=== PATIENT | male | born 1955 | race Caucasian/White ===

== ENCOUNTER 2024-12-17 02:25 | Day surgery (SDC) | payer MEDICARE, OTHER, SELFPAY ==
[2024-11-12 12:45] VITALS: BMI 36.6
--- NOTE | 2024-12-02 10:36 | SUR.PREOP ---
Pt called this am to cancel his procedure on 12/03 due to provider availability. Pt rescheduled to 12/17 [id number].
--- NOTE | 2024-12-05 13:23 | PC.NURSE ---
Recent interview completed on 11/12/2024. Pt updated with new time/dates and states no change in medications or medical history.
[2024-12-17 08:45] VITALS: BP 152/109; PULSE 62; RESP 18; TEMP 36.3; O2SAT 98
[2024-12-17] MEDS: LACTATED RINGERS 1,000 ML 150 ML IV CONT (08:55)
--- NOTE | 2024-12-17 09:22 | PM.HPGS ---
History of Present Illness History of Present Illness Consent: Risks, benefits, and alternatives have been discussed and questions answered. Patient agrees to proceed with procedure. Chief complaint: Positive Cologuard Narrative: Jose Pastrana is a 69 year old male here for first colonoscopy, + cologuard Review of Systems Review of Systems: All systems reviewed & are unremarkable except as noted in HPI and below PMFSH Past Medical History Medical History (Updated 12/17/24 @ 09:27 by Yazan Monge MD) Positive colorectal cancer screening using Cologuard test Social History Social History Smoking status: Never smoker Alcohol intake: current Drinks per week: 2 Substance use type: does not use Living arrangements: with family Spiritual care concerns: No Meds Home Medications and Allergies Home Medications ?Medication ?Instructions ?Recorded ?Confirmed ?Type No Home Medications 11/12/24 11/12/24 History Allergies Allergy/AdvReac Type Severity Reaction Status Date / Time No Known Allergies Allergy Unknown Verified 12/17/24 08:43 Vital Signs Vital Signs - 24 hr 12/17/24 08:45 Temperature 97.4 F L Pulse Rate 62 Respiratory Rate 18 Blood Pressure 152/109 H Pulse Oximetry 98 Oxygen Delivery Room Air Exam Const: General: comfortable and no acute distress HENMT: Face/Nose/Sinus: Normal nares present Eyes: General: appearance normal, both eyes and all related structures Neck: Neck: no JVD Resp: Auscultation: clear to auscultation bilaterally Cardio: Rate: regular rate Rhythm: regular rhythm GI: Inspection: non-distended GI Palp: Yes Soft to palpation Skin: General skin exam: normal color Neuro: General: gait normal Speech: normal speech Extrem: General: normal to inspection Psych: Mental Status: mental status grossly normal Assessment and Plan Assessment and plan (1) Positive colorectal cancer screening using Cologuard test: Code(s): R19.5 - Other fecal abnormalities Status: Acute Assessment and Plan: colonoscopy
[2024-12-17 09:46] VITALS: BP 128/87; PULSE 63; RESP 18; O2SAT 95
[2024-12-17 09:56] VITALS: BP 126/83; PULSE 55; RESP 18; O2SAT 96
[2024-12-17 10:06] VITALS: BP 132/81; PULSE 60; RESP 18; O2SAT 97
== END 2024-12-17 10:12 | disposition home or self-care (01) ==
PROVIDERS: PCP Family Medicine; Visit Provider Internal Medicine Gastroenterology
PROC: 0DJD8ZZ Inspection of Lower Intestinal Tract, Via Natural or Artificial Opening Endoscopic (ICD-10-PCS; CPT 45378; principal; 2024-12-17 10:00)
DX: D12.2 Benign neoplasm of ascending colon (principal); K64.8 Other hemorrhoids
CPT/HCPCS: 45380; 88305; J2003; J2704; J7120